=== PATIENT | male | born 2000 | race Caucasian/White ===

== ENCOUNTER 2024-02-29 14:05 | Emergency (ER) | payer OTHER ==
[~2024-02-29] VITALS: Ht 190.5 cm; Wt 95.5 kg
[2024-02-29 14:16] VITALS: BP 120/81; TEMP 98.5
[2024-02-29 19:10] VITALS: PULSE 82
== END 2024-02-29 19:11 | disposition home or self-care (01) ==
LOC: COL.ER 14:05
DX: S01.112A Laceration without foreign body of left eyelid and periocular area, initial encounter (principal); W22.01XA Walked into wall, initial encounter